=== PATIENT | male | born 1975 | race Caucasian/White ===

== ENCOUNTER 2018-06-09 02:56 | Inpatient (IN) | payer OTHER ==
[~2018-06-09] VITALS: Ht 188 cm; Wt 118.8 kg
[~2018-06-09 02:56] MED LIST: NO REPORTABLE MEDS
[2018-06-09 04:10] VITALS: BP 114/68
[2018-06-09] MEDS ORDERED: Z GUARD REMEDY 2 OZ OINT TP PRN (05:00)
[2018-06-09] MEDS ORDERED: DEXTROSE 50%-WATER 50 ML DISP.SYRIN IV PRN (05:00)
[2018-06-09] MEDS ORDERED: HYDROMORPHONE 1 MG/1 ML DISP.SYRIN IV ONE (05:00)
[2018-06-09] MEDS ORDERED: MAG HYDROX/AL HYDROX/SIMETH 30 ML UDC PO PRN (05:00)
[2018-06-09] MEDS ORDERED: HYDROMORPHONE INJ 2 MG/ML DISP.SYRIN IV PRN (05:00)
[2018-06-09] MEDS ORDERED: ONDANSETRON HCL/PF 4 MG/2 ML VIAL IVP PRN (05:00)
[2018-06-09] MEDS ORDERED: ACETAMINOPHEN 325 MG TABLET PO PRN (05:00)
[2018-06-09] MEDS ORDERED: HYDROCODONE/APAP 5/325MG 1 EACH TABLET PO PRN (05:00)
[2018-06-09] MEDS ORDERED: MAGNESIUM HYDROXIDE 30 ML UDC PO PRN (05:00)
--- NOTE | 2018-06-09 05:56 | NUR ---
MS RN NOTES PT'S REFUSING TO HAVE BLOOD DRAWN AT THIS TIME. STATES "I'VE BEEN STUCK COUPLE OF TIMES IN [place]. I WAS THERE SINCE 8PM AND I WANT TO REST FOR NOW. MAYBE THEY COULD COME BACK LATER AT 9-10AM" PER PT. WILL COME BACK AND DRAW BLOOD LATER PER CABLE SWAGER. MADE AWARE.
[2018-06-09] MEDS ORDERED: PIPERACILLIN /TAZOBACTAM 3.375 G in IV D5W 50 ML IV SCH (06:00)
[2018-06-09] MEDS ORDERED: CEFTAZIDIME 1 G in IV D5W 50 ML IV SCH (06:00)
--- NOTE | 2018-06-09 06:29 | NUR ---
MS RN NOTES PT SLEEPING. EASILY AROUSABLE. NOT IN ANY DISTRESS. NO SOB NOTED. DENIES ANY PAIN OR DISCOMFORT AT THIS TIME. WITH IV-HL PATENT & INTACT. MONITORED ACCORDINGLY. CALL LIGHT WITHIN REACH. BED IN LOWEST POSITION. SR UP X 2 FOR SAFETY. WILL ENDORSE TO NEXT SHIFT.
[2018-06-09] MEDS ORDERED: VANCOMYCIN 1 GM in IV NS 0.9% 250 ML IV ONE (07:00)
[2018-06-09] MEDS ORDERED: VANCOMYCIN 1 GM in IV D5W 250 ML IV ONE (07:10)
[2018-06-09] MEDS ORDERED: FEE PK DOSING 1 MIN EA MC ONE (07:26)
--- NOTE | 2018-06-09 07:39 | NUR ---
MS RN OPENING NOTES RECEIVED PATIENT IN STABLE CONDITION. IN NO APPARENT DISTRESS. BEDSIDE RAILS ARE UPX2. BED IS LOCKED AND LOWERED. CALL LIGHT IS WITHIN REACH. IV LINE IS INTACT AND PATENT. WILL CONTINUE TO MONITOR PATIENT.
[2018-06-09] MEDS: BLOOD SUGAR DIAGNOSTIC 1 EACH STRIP IN SCH ×4 (07:48→21:35)
[2018-06-09 08:00] VITALS: BP 117/72
[2018-06-09] MEDS: INSULIN REGULAR, HUMAN 100 UNIT/ML 3 ML VIAL SQ PRN ×3 (08:38→21:41)
--- NOTE | 2018-06-09 08:40 | NUR ---
CONTACTED PHARMACY TO PROVIDE CEFTAZIDIME FOR PATIENT SCHEDULED AT [phone]. PHARMACY WILL PROVIDE.
[2018-06-09] MEDS: CEFTAZIDIME 1 G in IV D5W 50 ML IV SCH ×3 (09:04→21:34)
--- NOTE | 2018-06-09 10:17 | NUR ---
WOUND CARE CONSULT: PT PRESENTS WITH REDNESS, SWELLING AND FLUCTUANCE TO LEFT LOWER LEG WITH PURULENT DRAINAGE, LEFT PLANTAR ULCER WITH PURULENT DRAINAGE AND [id number] CALLUS, AND LEFT DISTAL 3RD TOE ESCHAR/CALLUS (DRY). RECOMMEND DPM CONSULT. PT IS CONTINENT AND AMBULATORY. WILL SEE PRN.
[2018-06-09] MEDS: VANCOMYCIN 1.5 GM in IV D5W 500 ML IV SCH ×2 (11:48→23:01)
--- NOTE | 2018-06-09 13:00 | NUR ---
PATIENT WANTED TO GO OUTSIDE THE HOSPITAL TO SMOKE. PER PATIENT CAN GO OUT AND SMOKE. WAIVER FORM SIGNED. EXPLAINED RISKS AND BENEFITS. PATIENT INSISTED ON GOING OUTSIDE TO SMOKE.
--- NOTE | 2018-06-09 13:55 | NUR ---
CURRENTLY VANCOMYCIN RUNNING. WILL ADMINISTER CEFTAZIDIME ONCE VANCOMYCIN HAS FINISHED INFUSING.
[2018-06-09] MEDS: HYDROMORPHONE 1 MG/1 ML DISP.SYRIN IV PRN ×2 (14:39→22:52)
--- NOTE | 2018-06-09 15:00 | NUR ---
RECEIVED ORDER TO INSERT PICC LINE. PICC LINE NURSE AT THE BEDSIDE
--- NOTE | 2018-06-09 15:09 | NUR ---
PER PHARMACY OK TO GIVE CEFTAZIDIME AT THIS TIME DUE TO PATIENT CURRENTLY RECEIVING VANCOMYCIN. UNABLE TO SCAN MEDICATION BAR CODE DUE TO PATIENT CURRENTLY HAVING PICC LINE INSERTION AND MAINTAINING STERILE FIELD.
[2018-06-09 16:00] VITALS: BP 137/90
[2018-06-09 16:21] LABS: BASOPHILS % (AUTO) 0.6 % (0.0-2.0); EOSINOPHILS % (AUTO) 3.6 % (0.0-6.0); HEMATOCRIT 29 % (39-51); HEMOGLOBIN 9.3 g/dL (13.5-17.5); LYMPHOCYTES # (AUTO) 1.7 /CMM (0.8-4.8); LYMPHOCYTES % (AUTO) 20.3 % (20.0-44.0); MEAN CORPUSCULAR HGB CONC 32 g/dl (31.0-36.0); MEAN CORPUSCULAR VOLUME 84 fL (80-96); MONOCYTES # (AUTO) 0.5 /CMM (0.1-1.30); MONOCYTES % (AUTO) 5.9 % (2.0-12.0); NEUTROPHILS # (AUTO) 5.9 /CMM (1.8-8.9); NEUTROPHILS % (AUTO) 69.6 % (43.0-81.0); PLATELET COUNT (AUTO) 436 /CMM (150-450); RED BLOOD CELL COUNT(AUTO) 3.42 MIL/uL (4.5-6.0); WHITE BLOOD COUNT (AUTO) 8.4 K/uL (4.3-11.0)
[2018-06-09] MEDS ORDERED: ANESTHESIA TRAY IN PYXIS 1 EA TRAY MC ONE (17:34)
[2018-06-09] MEDS ORDERED: LIDOCAINE HCL/PF 1% 30 ML SDV ONE (17:35)
[2018-06-09] MEDS ORDERED: BUPIVACAINE 0.5 % PF 150 MG/30 ML VIAL ONE (17:35)
--- NOTE | 2018-06-09 17:52 | NUR ---
PATIENT TAKEN DOWN TO OPERATION ROOM. IN STABLE CONDITION. WILL CONTINUE TO MONITOR WHEN PATIENT RETURNS TO THE UNIT.
[2018-06-09] MEDS ORDERED: VANCOMYCIN 1 GM VIAL ONE (18:01)
[2018-06-09 18:10] LABS: CALCIUM, SERUM 8.6 mg/dL (8.5-10.1); CREATININE 0.8 mg/dL (0.6-1.3); POTASSIUM 3.7 mmol/L (3.5-5.1)
[2018-06-09 18:15] LABS: BILIRUBIN,TOTAL 0.5 mg/dL (0.2-1.0); MAGNESIUM 1.7 mg/dL (1.8-2.4); PHOSPHORUS 3.8 mg/dL (2.5-4.9)
[2018-06-09] MEDS ORDERED: SEVOFLURANE 250 ML BOTTLE IH ONE (18:18)
[2018-06-09] MEDS ORDERED: DESFLURANE 240 ML BOTTLE IH ONE (18:18)
[2018-06-09 18:23] LABS: THYROID STIMULATING HORMONE 2.334 uIU/mL (0.358-3.74)
[2018-06-09] MEDS ORDERED: CELLULOSE,OXIDIZED 1 PKT EACH MC ONE (18:31)
[2018-06-09] MEDS ORDERED: HYDROMORPHONE 1 MG/1 ML DISP.SYRIN ONE ×2 (19:20→19:29)
--- NOTE | 2018-06-09 20:00 | NUR ---
MS RN NOTE: PATIENT BACK FROM SURGERY, NO ACUTE DISTRESS NOTED. BREATHING EVEN AND UNLABORED, NO SOB NOTED. PICC LINE TO GIOVANNY IN PLACE. WOUND VAC TO LEFT LEG IN PLACE WITH CONTINUOUS SUCTION AT 125 MM/HG. NO S/S OF HYPER/HYPOGLYCEMIA NOTED. BED LOCKED AND IN LOWEST POSITION, CALL LIGHT IN REACH. WILL CONTINUE TO MONITOR.
--- NOTE | 2018-06-09 20:23 | NUR ---
Patient is alert, currently renting a room with friends/roommates. Prior to admission, he was ambulatory and independent with adl's. 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 Report using drugs, marijuana daily for pain. Surgery today- left lower extremity incision and drainage with excisional debridement. Will monitor for dc planning needs for discharge. Addendum: 06/09/18 at 2024 by SIGIFREDO NICHOLE RN Amended: Links added.
[2018-06-09 20:24] VITALS: BP 110/71
--- NOTE | 2018-06-09 21:01 | NUR ---
Spoke with patient,stated he rents a room in [place]. His brother lives in [place]. S/P left lower extremity incision and drainage with excisional debridement and wound vac placement. Patient will let telephonic case manager aware of his post hospitalization address .He might need homehealth follow up for wound care and IV abx when d/c as well as wound vac. Will coordinate dc needs with [facility] & d/c planners [phone]. Addendum: 06/09/18 at 2103 by SIGIFREDO NICHOLE RN Amended: Links added.
--- NOTE | 2018-06-09 21:45 | NUR ---
MS RN NOTE: PATIENT BLOOD SUGAR LEVEL 317MG/DL, PATIENT TO RECEIVE 8 UNITS PER SLIDING SCALE. NO S/S OF HYPERGLYCEMIA NOTED. WILL CONTINUE TO MONITOR.
--- NOTE | 2018-06-09 23:00 | NUR ---
MS RN NOTE: PATIENT COMPLAINS OF PAIN TO LLE 10/10, DILAUDID 1MG IV GIVEN PER MD ORDER. WILL CONTINUE TO MONITOR.
[2018-06-10] MEDS: HYDROMORPHONE 1 MG/1 ML DISP.SYRIN IV PRN ×4 (02:53→23:20)
--- NOTE | 2018-06-10 03:00 | NUR ---
MS RN NOTE: PATIENT COMPLAINS OF PAIN TO LLE 10/10, DILAUDID 1MG IV GIVEN PER MD ORDER. WILL CONTINUE TO MONITOR.
[2018-06-10] MEDS: CEFTAZIDIME 1 G in IV D5W 50 ML IV SCH ×3 (04:53→21:17)
--- NOTE | 2018-06-10 06:30 | NUR ---
MS RN NOTE: PATIENT RESTING IN BED, NO ACUTE DISTRESS NOTED. BREATHING EVEN AND UNLABORED, NO SOB NOTED. PICC LINE TO GIOVANNY IN PLACE. WOUND VAC TO LEFT LEG IN PLACE WITH CONTINUOUS SUCTION AT 125 MM/HG, ABOUT 50ML OF BLOODY DRAINAGE. NO S/S OF HYPER/HYPOGLYCEMIA NOTED. BED LOCKED AND IN LOWEST POSITION, CALL LIGHT IN REACH. WILL ENDORSE TO DAY NURSE TO CONTINUE WITH PLAN OF CARE. Addendum: 06/10/18 at 0712 by ALIS NORMAN RN PATIENT BLOOD SUGAR LEVEL 459 MG/DL, PATIENT TO RECEIVE 10 UNITS OF INSULIN PER SLIDING SCALE. TO CALL MD TO REPORT ELEVATED BLOOD SUGAR. WAITING FOR LAB RESULT.
[2018-06-10] MEDS: BLOOD SUGAR DIAGNOSTIC 1 EACH STRIP IN SCH ×4 (06:55→21:17)
[2018-06-10 07:12] LABS: BASOPHILS % (AUTO) 0.3 % (0.0-2.0); EOSINOPHILS % (AUTO) 0.1 % (0.0-6.0); HEMATOCRIT 32 % (39-51); HEMOGLOBIN 10.4 g/dL (13.5-17.5); LYMPHOCYTES # (AUTO) 1.3 /CMM (0.8-4.8); LYMPHOCYTES % (AUTO) 12.7 % (20.0-44.0); MEAN CORPUSCULAR HGB CONC 33 g/dl (31.0-36.0); MEAN CORPUSCULAR VOLUME 85 fL (80-96); MONOCYTES # (AUTO) 0.5 /CMM (0.1-1.30); NEUTROPHILS # (AUTO) 8.3 /CMM (1.8-8.9); NEUTROPHILS % (AUTO) 81.9 % (43.0-81.0); PLATELET COUNT (AUTO) 467 /CMM (150-450); RED BLOOD CELL COUNT(AUTO) 3.73 MIL/uL (4.5-6.0); WHITE BLOOD COUNT (AUTO) 10.1 K/uL (4.3-11.0)
--- NOTE | 2018-06-10 07:20 | NUR ---
INFORMED DR RYAN GARZA REGARDING HIGH BLOOD SUGAR LAB VALUE OF 459. NO NEW ORDERS. WILL CONTINUE TO MONITOR.
[2018-06-10 07:29] LABS: CALCIUM, SERUM 8.3 mg/dL (8.5-10.1); CREATININE 1.1 mg/dL (0.6-1.3); POTASSIUM 4.6 mmol/L (3.5-5.1)
[2018-06-10 08:00] VITALS: BP 117/78
[2018-06-10] MEDS: INSULIN REGULAR, HUMAN 100 UNIT/ML 3 ML VIAL SQ PRN ×4 (08:07→21:20)
[2018-06-10 10:55] LABS: APPEARANCE,URINE CLEAR (CLEAR); BILIRUBIN,URINE NEGATIVE (NEGATIVE); BLOOD, URINE NEGATIVE Ery/uL (NEGATIVE); COLOR,URINE YELLOW (YELLOW); KETONES,URINE NEGATIVE (NEGATIVE); LEUKOCYTE ESTERASE ,URINE NEGATIVE (NEGATIVE); NITRITE, URINE NEGATIVE (NEGATIVE); PH,URINE 5.5 (5.0-8.0); PROTEIN,URINE NEGATIVE (NEGATIVE); UGLUCOSE 3+ mg/dL (NEGATIVE); UROBILINOGEN,URINE 0.2 EU/dL (0.2)
[2018-06-10] MEDS: VANCOMYCIN 1.5 GM in IV D5W 500 ML IV SCH (11:08)
[2018-06-10 11:56] LABS: BACTERIA,URINE None seen /HPF (None Seen); RBC,URINE NONE SEEN /HPF (0-2); SQUAMOUS EPITHELIAL CELL,UR Few /HPF (None Seen); WBC,URINE NONE SEEN /HPF (0-3)
[2018-06-10 16:00] VITALS: BP 119/71
[2018-06-10] MEDS: LACTOBACILLUS RHAMNOSUS GG 1 EACH CAP.SPRINK PO SCH (16:07)
--- NOTE | 2018-06-10 16:49 | NUR ---
PATIENT IS NON COMPLIANT WITH HIS DIABETIC DIET. BLOOD SUGAR IS 419. DOCTOR IS AWARE. ADMINISTERED 10 UNITS OF HUMULIN INSULIN. WILL CONTINUE TO MONITOR.
--- NOTE | 2018-06-10 19:00 | NUR ---
RN OPENING NOTES PT AWAKE AND RESTING IN BED. NO COMPLAINTS OF PAIN, SOB OR DISTRESS AT THIS TIME. PT IS SP I&D OF LLE AND FOOT WITH WOUND VAC. PT HAS A RIGHT UPPER ARM PICC LINE INTACT AND PATENT. SAFETY PRECAUTIONS IN PLACE, BED IN LOWEST LOCKED POSITION, X2 SIDE RAILS UP AND CALL LIGHT WITHIN REACH. WILL CONTINUE TO MONITOR.
[2018-06-10 20:00] VITALS: BP 133/76
[2018-06-10] MEDS: INSULIN GLARGINE, 100 UNIT/ML CARTRIDGE SQ SCH (21:19)
[2018-06-11] MEDS: VANCOMYCIN 1.25 GM in IV D5W 500 ML IV SCH ×3 (03:45→20:24)
[2018-06-11] MEDS: CEFTAZIDIME 1 G in IV D5W 50 ML IV SCH ×3 (05:48→22:27)
[2018-06-11] MEDS: INSULIN REGULAR, HUMAN 100 UNIT/ML 3 ML VIAL SQ PRN ×4 (06:24→21:40)
[2018-06-11] MEDS: HYDROMORPHONE 1 MG/1 ML DISP.SYRIN IV PRN ×3 (06:25→18:58)
[2018-06-11] MEDS: BLOOD SUGAR DIAGNOSTIC 1 EACH STRIP IN SCH ×4 (06:33→21:36)
--- NOTE | 2018-06-11 06:56 | NUR ---
RN CLOSING NOTES PATIENT RESTING IN BED WITH, AT BEDSIDE. PATIENT CONTINUES TO BE NONCOMPLIANT WITH DIABETIC DIET. ALL PATIENT NEEDS MET OVERNIGHT. THE PATIENT HAS A RIGHT MIDLINE INTACT AND PATENT. WOUND VAC INTACT AND 50ML HAVE BEEN COLLECTED. SAFETY PRECAUTIONS IN PLACE, BED IN LOWEST LOCKED POSITION, X2 SIDE RAILS UP AND CALL LIGHT WITHIN REACH. WILL ENDORSE TO DAY SHIFT NURSE FOR CONTINUITY OF CARE.
[2018-06-11 07:31] LABS: BASOPHILS # (AUTO) 0.1 /CMM (0.0-0.2); BASOPHILS % (AUTO) 1.1 % (0.0-2.0); EOSINOPHILS % (AUTO) 3.5 % (0.0-6.0); HEMATOCRIT 31 % (39-51); HEMOGLOBIN 10.4 g/dL (13.5-17.5); LYMPHOCYTES # (AUTO) 2.9 /CMM (0.8-4.8); LYMPHOCYTES % (AUTO) 36.1 % (20.0-44.0); MEAN CORPUSCULAR HGB CONC 34 g/dl (31.0-36.0); MEAN CORPUSCULAR VOLUME 82 fL (80-96); MONOCYTES # (AUTO) 0.6 /CMM (0.1-1.30); MONOCYTES % (AUTO) 7.1 % (2.0-12.0); NEUTROPHILS # (AUTO) 4.2 /CMM (1.8-8.9); NEUTROPHILS % (AUTO) 52.2 % (43.0-81.0); PLATELET COUNT (AUTO) 444 /CMM (150-450); RED BLOOD CELL COUNT(AUTO) 3.77 MIL/uL (4.5-6.0)
[2018-06-11 07:55] LABS: CALCIUM, SERUM 8.8 mg/dL (8.5-10.1); CREATININE 0.9 mg/dL (0.6-1.3); MAGNESIUM 1.5 mg/dL (1.8-2.4); POTASSIUM 3.9 mmol/L (3.5-5.1)
[2018-06-11 07:57] VITALS: BP 120/55
[2018-06-11 08:00] VITALS: BP 120/55
--- NOTE | 2018-06-11 08:00 | NUR ---
RN NOTES RECEIVED PATIENT IN THE BED RESTING, NO ACUTE RESPIRATORY DISTRESS, V/S STABLE, PATIENT AROUSE WHEN CALLED NAME OR TOUCHED, SCHEDULED MEDICATION ADMINISTERED, PATIENT HAS PICC LINE ON RIGHT UPPER ARM INTACT. ALSO HAS A LEFT FOOD WOUND WAC DRAINING FINE. PATIENT REFUSED PAIN AT THIS TIME. NEEDS ATTENDED AND ANTICIPATED, NEXT TO THE BED, CALL LIGHT WITHIN TO REACH, SAFETY PRECAUTION MAINTAINED ALL THE TIME.
[2018-06-11] MEDS: LACTOBACILLUS RHAMNOSUS GG 1 EACH CAP.SPRINK PO SCH ×2 (08:44→17:10)
--- NOTE | 2018-06-11 12:00 | NUR ---
RN NOTES PATIENT BACK FROM SMOKING, BS-318 MG/DL, COVERAGE GIVEN, ALSO ADMINISTERED SCHEDULED MEDICATION, CALL LIGHT WITHIN TO REACH, ELEVATED LEFT LEG USING PILLOW. CONTINUED MONITORING.
[2018-06-11] MEDS: Magnesium 1GM/D5W 100ML PREMIX 100 ML IV SCH ×2 (12:13→12:19)
--- NOTE | 2018-06-11 12:36 | NUR ---
RN NOTES ADMINISTERED DILAUDID 1 MG/ML IV PUSH FOR LEFT LEG PAIN 03/31 PER PATIENT REQUEST, V/S TAKEN BP 120/55, P-69, CONTINUED MONITORING.
[2018-06-11 16:00] VITALS: BP 115/49
--- NOTE | 2018-06-11 17:00 | NUR ---
RN NOTES BS-347 MG/DL COVERAGE GIVEN, ALSO ADMINISTERED SCHEDULED MEDICATION. PATIENT STABLE EATING DINNER. CALL LIGHT WITHIN TO REACH. SAFETY PRECAUTION MAINTAINED ALL THE TIME.
--- NOTE | 2018-06-11 18:00 | NUR ---
RN NOTES PATIENT OUT TO SMOKE ON SMOKING AREA.
--- NOTE | 2018-06-11 18:58 | NUR ---
RN NOTES PATIENT BACK FROM SMOKING.CONNECTED WOUND WAC DRAINING WELL. ADMINISTERED DILAUDID 1 MG/ML IV PUSH FOR PAIN LEFT LEG 05/31 PER PATIENT REQUEST. V/S TAKEN BP -115/50, P-73, ENCOURAGED TO INCREASE FLUID INTAKE. CALL LIGHT NEAR TO REACH. ENDORSED ONCOMING NURSE FOR PLAN OF CARE.
--- NOTE | 2018-06-11 19:45 | NUR ---
MS/RN OPENING NOTES PT RECEIVED AWAKE, SITTING UP IN BED. A/OX3. ON ROOM AIR, BREATHING EVEN AND UNLABORED. DENIES SOB. NOTES LLE PAIN 03/31, JUST RECENTLY RECEIVED PAIN MEDICATION. GIOVANNY PICC LINE PATENT AND INTACT. LLE DRESSING C/D/I, WRAPPED WITH JAYE BANDAGE AND CONNECTED TO WOUND VAC RUNNING AT 125MMHG. BED IN LOW/LOCKED POSITION WITH CALL LIGHT IN REACH. BILATERAL UPPER SIDE RAILS IN PLACE.WILL CONTINUE TO MONITOR
[2018-06-11 20:00] VITALS: BP 139/84
[2018-06-11] MEDS: INSULIN GLARGINE, 100 UNIT/ML CARTRIDGE SQ SCH (21:41)
[2018-06-12] MEDS: HYDROMORPHONE 1 MG/1 ML DISP.SYRIN IV PRN ×2 (00:19→05:01)
[2018-06-12] MEDS: VANCOMYCIN 1.25 GM in IV D5W 500 ML IV SCH (04:30)
[2018-06-12 06:17] LABS: CALCIUM, SERUM 8.6 mg/dL (8.5-10.1); CREATININE 0.9 mg/dL (0.6-1.3); MAGNESIUM 1.6 mg/dL (1.8-2.4); PHOSPHORUS 4.4 mg/dL (2.5-4.9)
[2018-06-12 06:19] LABS: BASOPHILS # (AUTO) 0.2 /CMM (0.0-0.2); BASOPHILS % (AUTO) 2.1 % (0.0-2.0); EOSINOPHILS % (AUTO) 3.4 % (0.0-6.0); HEMATOCRIT 32 % (39-51); HEMOGLOBIN 10.7 g/dL (13.5-17.5); LYMPHOCYTES # (AUTO) 3.1 /CMM (0.8-4.8); LYMPHOCYTES % (AUTO) 38.5 % (20.0-44.0); MEAN CORPUSCULAR HGB CONC 33 g/dl (31.0-36.0); MEAN CORPUSCULAR VOLUME 82 fL (80-96); MONOCYTES # (AUTO) 0.7 /CMM (0.1-1.30); MONOCYTES % (AUTO) 8.9 % (2.0-12.0); NEUTROPHILS # (AUTO) 3.8 /CMM (1.8-8.9); NEUTROPHILS % (AUTO) 47.1 % (43.0-81.0); PLATELET COUNT (AUTO) 489 /CMM (150-450); RED BLOOD CELL COUNT(AUTO) 3.95 MIL/uL (4.5-6.0)
[2018-06-12] MEDS: INSULIN REGULAR, HUMAN 100 UNIT/ML 3 ML VIAL SQ PRN (06:28)
[2018-06-12] MEDS: BLOOD SUGAR DIAGNOSTIC 1 EACH STRIP IN SCH (06:30)
--- NOTE | 2018-06-12 06:54 | NUR ---
MS/RN CLOSING NOTES PT ASLEEP. OPENS EYES SPONTANEOUSLY. A/OX3. ON ROOM AIR, BREATHING EVEN AND UNLABORED. NO S/S OF ACUTE DISTRESS, SOB OR PAIN AT THIS TIME. GIOVANNY PICC LINE PATENT AND INTACT. LLE DRESSING C/D/I AND CONNECTED TO WOUND VAC. PAIN MANAGED WITH PRN DILAUDID. NO SIGNIFICANT CHANGES OVERNIGHT. ALL NEEDS MET. KEPT PT COMFORTABLE THROUGHOUT SHIFT. BED REMAINS IN LOW/LOCKED POSITION WITH CALL LIGHT IN REACH. BILATERAL UPPER SIDE RAILS IN PLACE. LLE ELEVATED ON PILLOW. WILL ENDORSE TO DAY SHIFT RN MORGAN.
--- NOTE | 2018-06-12 07:18 | NUR ---
MS RN OPENING NOTES RECEIVED PATIENT IN BED ASLEEP, EASILY AROUSABLE. HOB ELEVATED. ON ROOM AIR, BREATHING EVEN AND UNLABORED. GIOVANNY PICC LINE IN PLACE AND PATENT, IV ABT INFUSING AT THIS TIME. DRESSING TO LLE C/D/I WRAPPED WITH JAYE BANDAGE AND CONNECTED TO WOUND VAC AT PRESCRIBED SETTINGS. SAFETY MEASURES IN PLACE. BED IN LOW LOCKED POSITION WITH SR UP X2. CALL LIGHT WITHIN REACH. WILL CONTINUE TO MONITOR PATIENT.
[2018-06-12] MEDS: CEFTAZIDIME 1 G in IV D5W 50 ML IV SCH (07:32)
[2018-06-12 08:00] VITALS: BP 127/77
[2018-06-12] MEDS: LACTOBACILLUS RHAMNOSUS GG 1 EACH CAP.SPRINK PO SCH (09:11)
[2018-06-12] MEDS ORDERED: Magnesium 1GM/D5W 100ML PREMIX 100 ML IV SCH (09:29)
--- NOTE | 2018-06-12 10:38 | NUR ---
RN AMA NOTES PATIENT NOTED ARGUING IN HIS ROOM WITH ONE OF HIS VISITOR AND BECAME VERY AGITATED, RESTLESS AND SHOUTING THAT HE WANTS TO GO AMA. EXPLAINED RISKS OF GOING AMA BUT HE SAID THAT HE DOESN'T CARE. PT DRESSED UP AND COLLECTED ALL HIS BELONGINGS AND STARTED TO WALK AND WENT TO NURSES STATION THAT IF I WILL NOT GIVE HIM HIS EXIT CARE PAPERS HE WILL GO EVEN WITHOUT SIGNING THE AMA. DR DUBOIS MADE AWARE AND TALKED TO HIM AND STILL WANTS TO GO AMA. DR DUBOIS SAID TO REMOVED PICC LINE ON GIOVANNY AND WAS REMOVED WITH NO BLEEDING NOTED, PRESSURE GAUZE APPLIED AND TAPED. EXPLAINED AND TRIED TO REMOVED WOUND VAC DRESSING ON HIS LLE BUT REFUSED AND SAID JUST KEEP THE DRESSING ON BECAUSE I WANT TO GOING HOME NOW. PT DIDN'T WANT TO LISTEN TO ANY HEALTH TEACHINGS AND WAS RUSHING ME TO JUST HAND HIM THE EXIT CARE INSTRUCTIONS PAPERS FOR HIM TO SIGN AND HE DID. PT RUSHED HIS VINE PRUNER TO WHEEL HIM DOWN TO THE [email or web address] AT 1025. I WENT TO DR DUBOIS AND TAKE PRESCRIPTION FOR ORAL ANTIBIOTIC FOR PT TO TAKE HOME AND HANDED TO HIM AT THE PARKING AREA IN FRONT OF THE LOBBY. CHARGE NURSE AWARE OF PT AMA
[2018-06-12] MEDS ORDERED: SULF1TAB48 PO (10:40)
[2018-06-12] MEDS ORDERED: CEPH-570 PO (10:40)
== END 2018-06-12 10:26 | disposition left against medical advice (07) | DRG 383 ==
LOC: MED 03:58
PROVIDERS: ADMIT Nurse Practitioner Acute Care; ATTEND Nurse Practitioner Acute Care
PROC: B548ZZA Ultrasonography of Superior Vena Cava, Guidance (ICD-10-PCS; principal; 2018-06-09 19:00)
PROC: 0JBP0ZZ Excision of Left Lower Leg Subcutaneous Tissue and Fascia, Open Approach (ICD-10-PCS; principal; 2018-06-09 19:00)
PROC: 0JBR0ZZ Excision of Left Foot Subcutaneous Tissue and Fascia, Open Approach (ICD-10-PCS; principal; 2018-06-09 19:00)
PROC: 02HV33Z Insertion of Infusion Device into Superior Vena Cava, Percutaneous Approach (ICD-10-PCS; principal; 2018-06-09 19:00)
DX: L03.116 Cellulitis of left lower limb (principal); E11.42 Type 2 diabetes mellitus with diabetic polyneuropathy; E11.621 Type 2 diabetes mellitus with foot ulcer; E11.65 Type 2 diabetes mellitus with hyperglycemia; L02.416 Cutaneous abscess of left lower limb; I10 Essential (primary) hypertension; E11.69 Type 2 diabetes mellitus with other specified complication; M86.9 Osteomyelitis, unspecified; L97.529 Non-pressure chronic ulcer of other part of left foot with unspecified severity; Z83.3 Family history of diabetes mellitus; E11.622 Type 2 diabetes mellitus with other skin ulcer; E66.9 Obesity, unspecified; Z68.33 Body mass index [BMI] 33.0-33.9, adult; F17.200 Nicotine dependence, unspecified, uncomplicated; Z91.19 Patient's noncompliance with other medical treatment and regimen; F41.9 Anxiety disorder, unspecified
CPT/HCPCS: 36415; 36569; 71045-TC; 73590-TC; 73610-TC; 73620-TC; 80048-TC; 80053-TC; 80061-TC; 80202-TC; 80305; 81000-TC; 82962-TC; 83605-TC; 83735-TC; 84100-TC; 84443-TC; 85025-TC; 87040-TC; 87070-TC; 87086-TC; A4606; A6253; A6402; A6403; C1751; G0378; J0713; J1100; J1170; J1815; J2543; J2704; J3370; J3475; J3490; J7050; J7060; Z7610

== ENCOUNTER 2018-11-03 23:33 | Inpatient (IN) | payer OTHER ==
[~2018-11-03] VITALS: Ht 177.8 cm; Wt 110.3 kg
[~2018-11-03 23:33] MED LIST changes: +CEPH-570 PO; -NO REPORTABLE MEDS; +SULF1TAB48 PO
[2018-11-04 00:15] VITALS: BP 109/72
[2018-11-04 00:20] VITALS: BP 109/72
--- NOTE | 2018-11-04 00:20 | NUR ---
PUBLICATION SPECIALIST NOTES ADMITTED A 43 YEAR OLD MALE PATIENT, A DIRECT ADMIT FROM [facility], TRANSPORTED VIA STRETCHER ACCOMPANIED BY 2 design printer balloon, INITIAL ASSESSMENT DONE, CONNECTED TO TELE MONITOR, READS SR 66 - 68 WITH FIRST DEGREE AVB, NO SKIN ISSUES NOTED, ORIENTED TO UNIT AND THE USE OF CALL LIGHT, WILL MONITOR ACCORDINGLY.
[2018-11-04] MEDS ORDERED: ACETAMINOPHEN 325 MG TABLET PO PRN (01:00)
[2018-11-04] MEDS ORDERED: KETOROLAC TROMETHAMINE INJ 30 MG/ML VIAL IV PRN (01:00)
[2018-11-04] MEDS ORDERED: NITROGLYCERIN 0.4 MG/TAB BOTTLE SL PRN (01:00)
[2018-11-04] MEDS ORDERED: ONDANSETRON HCL/PF 4 MG/2 ML VIAL IVP PRN (01:00)
[2018-11-04] MEDS ORDERED: DOCUSATE SODIUM 100 MG CAPSULE PO PRN (01:00)
[2018-11-04] MEDS ORDERED: MAG HYDROX/AL HYDROX/SIMETH 30 ML UDC PO PRN (01:00)
[2018-11-04] MEDS ORDERED: INSULIN REGULAR, HUMAN 100 UNIT/ML 3 ML VIAL SQ PRN (02:30)
[2018-11-04] MEDS ORDERED: DEXTROSE 50%-WATER 50 ML DISP.SYRIN IV PRN (02:30)
[2018-11-04 06:20] LABS: BASOPHILS % (AUTO) 0.3 % (0.0-2.0); EOSINOPHILS % (AUTO) 3.7 % (0.0-6.0); HEMATOCRIT 43 % (39-51); HEMOGLOBIN 14.7 g/dL (13.5-17.5); LYMPHOCYTES # (AUTO) 2.2 /CMM (0.8-4.8); LYMPHOCYTES % (AUTO) 27.5 % (20.0-44.0); MEAN CORPUSCULAR HGB CONC 35 g/dl (31.0-36.0); MEAN CORPUSCULAR VOLUME 94 fL (80-96); MONOCYTES # (AUTO) 0.7 /CMM (0.1-1.30); MONOCYTES % (AUTO) 8.3 % (2.0-12.0); NEUTROPHILS # (AUTO) 4.8 /CMM (1.8-8.9); NEUTROPHILS % (AUTO) 60.2 % (43.0-81.0); PLATELET COUNT (AUTO) 182 /CMM (150-450); RED BLOOD CELL COUNT(AUTO) 4.51 MIL/uL (4.5-6.0)
[2018-11-04 06:40] LABS: CALCIUM, SERUM 8.3 mg/dL (8.5-10.1); CREATININE 0.9 mg/dL (0.6-1.3); MAGNESIUM 1.8 mg/dL (1.8-2.4); PHOSPHORUS 4.2 mg/dL (2.5-4.9); POTASSIUM 3.8 mmol/L (3.5-5.1)
[2018-11-04 06:44] LABS: THYROID STIMULATING HORMONE 2.786 uIU/mL (0.358-3.74)
[2018-11-04] MEDS: BLOOD SUGAR DIAGNOSTIC 1 EACH STRIP IN SCH ×3 (06:52→17:42)
--- NOTE | 2018-11-04 07:00 | NUR ---
RN OPENING NOTES RECEIVED PATIENT IN BED RESTING. A/OX4, ABLE TO MAKE NEEDS KNOWN. NOT IN ANY FORM OF DISTRESS, NO SOB. DENIED CHEST PAIN OR DISCOMFORT AT THIS TIME. IV ACCESS INTACT AND PATENT. KEPT PATIENT NPO, FOR CARDIAC CONSULT. SAFETY MEASURES INITIATED, BED IN LOW/LOCKED POSITION, SIDERAILS UPX2, CALL LIGHT IN REACH. WILL CONTINUE TO MONITOR ACCORDINGLY.
--- NOTE | 2018-11-04 07:10 | NUR ---
MONOTYPE MACHINIST NOTES PATIENT ON NPO, BS 190MG/DL, WILL ENDORSE TO AM NURSE FOR CONTINUITY OF CARE.
[2018-11-04 08:12] VITALS: BP 115/75
[2018-11-04] MEDS ORDERED: CEPHALEXIN MONOHYDRATE 500 MG CAPSULE PO SCH (09:00)
[2018-11-04] MEDS ORDERED: NICOTINE PATCH (21MG) 21 MG PATCH.TD24 TD SCH (09:00)
[2018-11-04] MEDS ORDERED: ASPIRIN EC 81 MG TABLET.DR PO SCH ×2 (09:00)
[2018-11-04] MEDS ORDERED: SULFAMETH/TRIMETH 800/160 MG 1 UDTAB TABLET PO SCH (09:00)
--- NOTE | 2018-11-04 12:30 | NUR ---
st=[id number], refused insulin coverage. explained risk and benefits but still refused. will moniotr accordingly
[2018-11-04 16:00] VITALS: BP 131/73
--- NOTE | 2018-11-04 18:00 | NUR ---
PATIENT LEFT AGAINST MEDICAL ADVICE. EXPLAINED RISK OF LEAVING AMA, PATIENT STILL REFUSED TO STAY IN THE HOSPITAL AND WANTED TO LEAVE. PER PATIENT, "HE WILL JUST GO TO A CHIROPRACTOR". SIGNED AMA FORM. EXITCARE PAPERWORK PROVIDED. INSTRUCTED TO RETURN TO THE NEAREST EMERGENCY DEPARTMENT FOR WORSEN OF SYMPTOMS OR CALL 911 FOR EMERGENCY, TO FOLLOW UP WITH PCP AND CONTINUE HOME MEDS ORDERED. REMOVED IV ACCESS, APPLIED PRESSURE, NO BLEEDING, NO COMPLICATIONS. REMOVED NAME BAND. ALL BELONGINGS RETURNED AND FORM SIGNED. REFUSED PICTURES.
[2018-11-04] MEDS ORDERED: SIMVASTATIN 10 MG TABLET PO SCH (22:00)
== END 2018-11-04 17:45 | disposition left against medical advice (07) | DRG 48 ==
LOC: TELE 11-04 00:06
PROVIDERS: ADMIT Registered Nurse; ATTEND Registered Nurse
DX: M54.10 Radiculopathy, site unspecified (principal); E11.65 Type 2 diabetes mellitus with hyperglycemia; I25.2 Old myocardial infarction; M86.9 Osteomyelitis, unspecified; Z82.49 Family history of ischemic heart disease and other diseases of the circulatory system; Z91.14 Patient's other noncompliance with medication regimen; Z91.19 Patient's noncompliance with other medical treatment and regimen; V29.9XXS Motorcycle rider (driver) (passenger) injured in unspecified traffic accident, sequela; F17.200 Nicotine dependence, unspecified, uncomplicated; G89.29 Other chronic pain; E78.5 Hyperlipidemia, unspecified; E66.9 Obesity, unspecified; I10 Essential (primary) hypertension; Z68.34 Body mass index [BMI] 34.0-34.9, adult; M25.512 Pain in left shoulder; L03.90 Cellulitis, unspecified
CPT/HCPCS: 36415; 80048-TC; 80061-TC; 82962-TC; 83735-TC; 84100-TC; 84443-TC; 84484-TC; 85025-TC; 87081-TC; 93307-TC; G0378; J1815; J1885

== ENCOUNTER 2020-04-24 18:14 | Emergency (ER) | payer OTHER ==
[~2020-04-24] VITALS: Ht 182.9 cm; Wt 102.1 kg
[2020-04-24 18:20] VITALS: BP 128/73
--- NOTE | 2020-04-24 18:24 | NUR ---
JIM CROWE AT BEDSIDE FOR EVAL.
[2020-04-24] MEDS ORDERED: ACETAMINOPHEN ES 500 MG TABLET ONE (18:36)
[2020-04-24] MEDS: ACETAMINOPHEN 325 MG TABLET PO ONE (18:38)
--- NOTE | 2020-04-24 18:52 | NUR ---
Patient discharged to home in stable condition. Written and verbal after care instructions given. Patient verbalizes understanding of instruction.
== END 2020-04-24 18:53 | disposition home or self-care (01) ==
LOC: ER 18:17
DX: H60.92 Unspecified otitis externa, left ear (principal); H66.92 Otitis media, unspecified, left ear; I10 Essential (primary) hypertension; E11.9 Type 2 diabetes mellitus without complications; Z88.6 Allergy status to analgesic agent; Z88.0 Allergy status to penicillin; Z88.5 Allergy status to narcotic agent

== ENCOUNTER 2020-06-12 02:25 | Emergency (ER) | payer OTHER ==
[~2020-06-12] VITALS: Ht 182.9 cm; Wt 102.1 kg
[2020-06-12 02:27] VITALS: BP 131/87
--- NOTE | 2020-06-12 02:53 | NUR ---
ZAYRA COLLECTED AND SENT TO LAB
== END 2020-06-12 03:05 | disposition home or self-care (01) ==
LOC: ER 02:25
DX: B34.9 Viral infection, unspecified (principal); Z20.828 Contact with and (suspected) exposure to other viral communicable diseases
CPT/HCPCS: 99283; C9803; U0003

== ENCOUNTER 2022-01-17 16:53 | Emergency (ER) | payer MEDICAID, OTHER ==
[~2022-01-17] VITALS: Ht 182.9 cm; Wt 95.3 kg
[2022-01-17 18:22] VITALS: BP 106/68
--- NOTE | 2022-01-17 19:00 | NUR ---
PATIENT ONLY REPORTED ALLERGY TO CODEINE. PRIMARY RN AWARE.
[2022-01-17] MEDS ORDERED: CEPH500T PO (19:04)
--- NOTE | 2022-01-17 19:31 | NUR ---
Patient discharged to home in stable condition. Written and verbal after care instructions given. Patient verbalizes understanding of instruction.
== END 2022-01-17 19:31 | disposition home or self-care (01) ==
LOC: ER 17:06
DX: L03.032 Cellulitis of left toe (principal); B35.1 Tinea unguium; E11.9 Type 2 diabetes mellitus without complications; I10 Essential (primary) hypertension; E78.5 Hyperlipidemia, unspecified; Z59.00 Homelessness unspecified; Z88.8 Allergy status to other drugs, medicaments and biological substances; Z79.899 Other long term (current) drug therapy
CPT/HCPCS: 73630-TC

== ENCOUNTER 2024-05-22 20:33 | Emergency (ER) | payer MEDICAID, OTHER ==
[~2024-05-22] VITALS: Ht 182.9 cm; Wt 97.1 kg
[~2024-05-22 20:33] MED LIST changes: +CEPH500T PO
[2024-05-22 21:42] VITALS: BP 134/84; TEMP 97.7; O2SAT 98
[2024-05-22] MEDS ORDERED: KETOROLAC TROMETHAMINE 15 MG/ML VIAL ONE (22:44)
[2024-05-22] MEDS: KETOROLAC TROMETHAMINE 15 MG/ML VIAL IM ONE (22:48)
[2024-05-22 23:52] LABS: APPEARANCE,URINE CLEAR (CLEAR); BILIRUBIN,URINE NEGATIVE (NEGATIVE); BLOOD, URINE NEGATIVE Ery/uL (NEGATIVE); COLOR,URINE YELLOW (YELLOW); KETONES,URINE NEGATIVE (NEGATIVE); LEUKOCYTE ESTERASE ,URINE NEGATIVE (NEGATIVE); NITRITE, URINE NEGATIVE (NEGATIVE); PROTEIN,URINE NEGATIVE (NEGATIVE); UGLUCOSE 3+ mg/dL (NEGATIVE); UROBILINOGEN,URINE 0.2 EU/dL (0.2)
[2024-05-23 00:26] LABS: ADD URINE CULTURE NO; BACTERIA,URINE None seen /HPF (None Seen); RBC,URINE NONE SEEN /HPF (0-2); SQUAMOUS EPITHELIAL CELL,UR None Seen /HPF (None Seen); WBC,URINE NONE SEEN /HPF (0-3)
[2024-05-23] MEDS ORDERED: CLOT15CR27 TP (01:36)
[2024-05-23] MEDS ORDERED: [UNRECOGNIZED DRUG - OTHER] MC (01:36)
[2024-05-23] MEDS ORDERED: CEPH500C2 PO (01:36)
[2024-05-23] MEDS ORDERED: INSU100V7 SQ (01:36)
== END 2024-05-23 02:43 | disposition home or self-care (01) ==
LOC: ER 20:37
DX: N48.1 Balanitis (principal); I10 Essential (primary) hypertension; E11.9 Type 2 diabetes mellitus without complications; Z88.5 Allergy status to narcotic agent
CPT/HCPCS: 99285; 96372; 76870; 81001; J1885